=== PATIENT | female | born 1975 | race Two or more races ===

== ENCOUNTER 2016-07-21 11:06 | Emergency (ER) | payer OTHER, MEDICAID ==
[2016-07-21] MEDS ORDERED: KETOROLAC 30 MG/ML 1 ML VIAL IVP STA (11:32)
[2016-07-21] MEDS ORDERED: SODIUM CHLORIDE 0.9% 500 ML IV STA (11:32)
[2016-07-21] MEDS ORDERED: SODIUM CHLORIDE 0.9% 1,000 ML IV STA (11:32)
[2016-07-21] MEDS ORDERED: METOCLOPRAMIDE 5 MG/ML 2 ML VIAL IVP STA (11:32)
[2016-07-21] MEDS ORDERED: DEXAMETHASONE SOD PHOSPHATE 10 MG/ML 1 ML VIAL IV STA (11:34)
[2016-07-21] MEDS ORDERED: MAGNESIUM SULFATE-D5W PMX 1 GM in DEXTROSE/WATER 1 100ML.BAG IVPB ONE (11:35)
[2016-07-21 12:11] LABS: Basophils % (A) 1 %; CH 32.8; CHCM 35.1; Eosinophils # (A) 0.2 k/uL (0-0.7); Eosinophils % (A) 4 %; HCT 42.4 % (34.0-46.0); HDW 2.67; HGB 14.9 gm/dL (11.4-16.0); Luc # (Auto) 0.08; Luc % (Auto) 1; Lymphocytes # (A) 1.5 k/uL (1.0-4.8); Lymphocytes % (A) 26 %; MCH 32.9 pg (25.0-35.0); MCHC 35.1 g/dL (31.0-37.0); MCV 93.9 fL (80.0-100.0); Mean Platelet Volume 6.4; Monocytes # (A) 0.3 k/uL (0-1.0); Monocytes % (A) 6 %; Neutrophils # (A) 3.7 k/uL (1.3-7.7); Neutrophils % (A) 63 %; RBC 4.51 m/uL (3.80-5.40); RDW 12.4 % (11.5-15.5); WBC 5.9 k/uL (3.8-10.6); WBC (Perox) 5.97
--- NOTE | 2016-07-21 12:26 | CT ---
EXAMINATION TYPE: CT brain wo con DATE OF EXAM: 07/21/2016 12:18 PM COMPARISON: 01/11/2012 INDICATION: Patient complains of migraine headache unresponsive to her new medication. DLP: 975 mGycm, Automated exposure control for dose reduction was used. CONTRAST: None CT of the brain is performed utilizing 3 mm thick sections through the posterior fossa and 3 mm thick sections through the remaining calvarium. Study is performed within 24 hours of arrival to the hosp [facility]. No abnormal hyperdensity is present to suggest an acute intracranial hemorrhage. No mass lesion is evident. No acute infarcts are evident. Parenchymal density has a more normal appearance on the current examin ation. Ventricles and sulci are appropriate for the patient age. Paranasal sinuses and mastoid air cells within the types-iv-kgty are clear. IMPRESSIONS: 1. No acute intracranial process.
[2016-07-21 12:33] LABS: Anion Gap 9 mmol/L; Blood Urea Nitrogen 12 mg/dL (7-17); Calcium 8.6 mg/dL (8.4-10.2); Carbon Dioxide 24 mmol/L (22-30); Chloride 107 mmol/L (98-107); Glucose 93 mg/dL (74-99); Non-African American GFR(MDRD) >60 (>60 ml/min/1.73 sqM); Potassium 4.4 mmol/L (3.5-5.1); Sodium 140 mmol/L (137-145)
--- NOTE | 2016-07-21 12:48 | ED ---
Headache HPI - General Chief Complaint: Headache Stated Complaint: POSS ALLERGIC REACTION TO NEW MED Time Seen by Provider: 07/21/16 11:19 Mode of arrival: ambulatory Limitations: no limitations - History of Present Illness Initial Comments: This 40-year-old white female presents with a complaint of a headache. She relates that she has had headaches for the last 3 months. She apparently saw Dr. Roman approximately one week ago and was prescribed Fioricet one pill 3 times a day as needed. She relates that she took 6-7 pills yesterday. She has had somewhat limited relief. The headache was initially on the left side and now it is on the right side. She has tried some Tylenol and Zofran. She's had significant nausea. She has had some photophobia but denies any phonophobia. She is still taking her oxycodone twice a day as well as mobile back. Her temperatures ranged between 99 and 100. She denies any visual complaints otherwise or neck pain. She denies any possibility of as she's had a hysterectomy. She does relate a history of close head injury in 2008 and a follow-up computed tomography scan showed shelly "spots on the brain". She has seen a local neurologist but is currently following up with a neurologist at [facility]. She has a history of interstitial cystitis with bladder removal and subsequent stoma and stimulator placement. She has chronic pain for these issues and sees a neurologist for the bladder stimulator but has not followed up with them in regard to the headaches as of yet. No other complaints or modifying factors. - Related Data Home Medications Medication Instructions Recorded Confirmed Acetaminophen [Tylenol 8 Hour] 1,300 mg PO TID PRN 07/21/16 07/21/16 Butalb/Acetaminophen/Caffeine 1 cap PO 5XD 07/21/16 07/21/16 [Qllggp-Qdltfaws-Sbtz 50-300-40] Meloxicam [Meloxicam] 7.5 mg PO BID 07/21/16 07/21/16 Ondansetron [Zofran] 4 mg PO QID PRN 07/21/16 07/21/16 Sertraline HCl [Sertraline HCl] 100 mg PO DAILY 07/21/16 07/21/16 Zolpidem [Ambien] 10 mg PO HS PRN 07/21/16 07/21/16 oxyCODONE HCL [oxyCODONE HCL] 20 mg PO BID 07/21/16 07/21/16 Allergies Allergy/AdvReac Type Severity Reaction Status Date / Time prochlorperazine Allergy Rash/Hives Verified 07/21/16 12:08 [From Compazine] Review of Systems ROS Statement: Those systems with pertinent positive or pertinent negative responses have been documented in the HPI. ROS Other: All systems not noted in ROS Statement are negative. Past Medical History Additional Past Medical History / Comment(s): migraines History of Any Multi-Drug Resistant Organisms: MRSA Date of last positivie culture/infection: 08/03/15 MDRO Source:: GROIN Past Psychological History: No Psychological Hx Reported Smoking Status: Never smoker Past Alcohol Use History: Occasional Past Drug Use History: None Reported General Exam - General Exam Comments Initial Comments: GENERAL: The patient is well nourished and well hydrated. VITAL SIGNS: Heart rate, blood pressure, respiratory rate reviewed as recorded in nurse's notes. EYES: Pupils are round and reactive. Extraocular movements are intact. No conjunctival / lid redness or swelling. ENT: No external evidence of injury, swelling, or ecchymosis. Airway is patent. Throat is clear. NECK: Nontender. No swelling or evidence of injury. No subcutaneous emphysema. Trachea is midline. No thyroid mass. HEART: Regular rate and rhythm. Good peripheral pulses. LUNGS/CHEST: Breath sounds clear and equal bilaterally. No rales, rhonchi, or wheezes. No ecchymosis, subcutaneous emphysema, or tenderness. ABDOMEN: Abdomen soft without tenderness. No palpable masses or organomegaly. No peritoneal signs. No abdominal wall swelling or ecchymosis. Stoma is present for urine. EXTREMITIES: No extremity tenderness. Normal muscle tone and function. No thoracolumbar tenderness. NEUROLOGIC: Sensation is grossly intact. Cranial nerve exam reveals face is symmetrical, tongue is midline, speech is clear. SKIN: No abrasions or ecchymosis is noted. No induration or masses noted. PSYCHIATRIC: Alert and oriented. Appropriate behavior and judgment. Limitations: no limitations Course Vital Signs 07/21/16 07/21/16 11:12 12:50 Temperature 97.8 F 98.7 F Pulse Rate 101 H 86 Respiratory 20 16 Rate Blood Pressure 126/72 161/79 O2 Sat by Pulse 98 100 Oximetry Medical Decision Making - Medical Decision Making The patient was seen and examined. All diagnostics were reviewed. An IV is established and patient is given Decadron, Toradol, Reglan, and magnesium with IV fluids. She relates significant improvement with these medications. She had a computed tomography scan of the brain which did not show any acute processes. Her laboratory was all normal. It is felt that she likely does have chronic migraine headaches. It is also felt that she may benefit from some Imitrex. She is agreeable to trying this medication. Due to the chronicity and significance of her headaches it is felt as though she benefit from further follow-up with her neurologist. She understands and agrees. She leaves in no identifiable distress. - Lab Data Result diagrams: 07/21/16 12:00 07/21/16 12:00 Lab Results 07/21/16 07/21/16 Range/Units 12:00 12:00 WBC 5.9 (3.8-10.6) k/uL RBC 4.51 (3.80-5.40) m/uL Hgb 14.9 (11.4-16.0) gm/dL Hct 42.4 (34.0-46.0) % MCV 93.9 (80.0-100.0) fL MCH 32.9 (25.0-35.0) pg MCHC 35.1 (31.0-37.0) g/dL RDW 12.4 (11.5-15.5) % Plt Count 294 (150-450) k/uL Neutrophils % 63 % Lymphocytes % 26 % Monocytes % 6 % Eosinophils % 4 % Basophils % 1 % Neutrophils # 3.7 (1.3-7.7) k/uL Lymphocytes # 1.5 (1.0-4.8) k/uL Monocytes # 0.3 (0-1.0) k/uL Eosinophils # 0.2 (0-0.7) k/uL Basophils # 0.0 (0-0.2) k/uL Sodium 140 (137-145) mmol/L Potassium 4.4 (3.5-5.1) mmol/L Chloride 107 (98-107) mmol/L Carbon Dioxide 24 (22-30) mmol/L Anion Gap 9 mmol/L BUN 12 (7-17) mg/dL Creatinine 0.70 (0.52-1.04) mg/dL Est GFR (MDRD) Af Amer >60 (>60 ml/min/1.73 sqM) Est GFR (MDRD) Non-Af >60 (>60 ml/min/1.73 sqM) Glucose 93 (74-99) mg/dL Calcium 8.6 (8.4-10.2) mg/dL Disposition Clinical Impression: Migraine Disposition: HOME SELF-CARE Condition: Good Instructions: Migraine Headache (ED) Referrals: Mackenzie Roman DO [Primary Care Provider] - 1-2 days Time of Disposition: 13:32
[2016-07-21 12:51] VITALS: RESP 16
--- NOTE | 2016-07-21 13:34 | ED ---
Medical Decision Making - Lab Data Result diagrams: 07/21/16 12:00 07/21/16 12:00 Lab Results 07/21/16 07/21/16 Range/Units 12:00 12:00 WBC 5.9 (3.8-10.6) k/uL RBC 4.51 (3.80-5.40) m/uL Hgb 14.9 (11.4-16.0) gm/dL Hct 42.4 (34.0-46.0) % MCV 93.9 (80.0-100.0) fL MCH 32.9 (25.0-35.0) pg MCHC 35.1 (31.0-37.0) g/dL RDW 12.4 (11.5-15.5) % Plt Count 294 (150-450) k/uL Neutrophils % 63 % Lymphocytes % 26 % Monocytes % 6 % Eosinophils % 4 % Basophils % 1 % Neutrophils # 3.7 (1.3-7.7) k/uL Lymphocytes # 1.5 (1.0-4.8) k/uL Monocytes # 0.3 (0-1.0) k/uL Eosinophils # 0.2 (0-0.7) k/uL Basophils # 0.0 (0-0.2) k/uL Sodium 140 (137-145) mmol/L Potassium 4.4 (3.5-5.1) mmol/L Chloride 107 (98-107) mmol/L Carbon Dioxide 24 (22-30) mmol/L Anion Gap 9 mmol/L BUN 12 (7-17) mg/dL Creatinine 0.70 (0.52-1.04) mg/dL Est GFR (MDRD) Af Amer >60 (>60 ml/min/1.73 sqM) Est GFR (MDRD) Non-Af >60 (>60 ml/min/1.73 sqM) Glucose 93 (74-99) mg/dL Calcium 8.6 (8.4-10.2) mg/dL Disposition Clinical Impression: Migraine Disposition: HOME SELF-CARE Condition: Good Instructions: Migraine Headache (ED) Prescriptions: SUMAtriptan SUCCINATE [Imitrex] 50 mg PO ONCE PRN #10 tablet PRN Reason: Headache Referrals: Mackenzie Gonzales DO [Primary Care Provider] - 1-2 days
[2016-07-21 14:27] VITALS: BP 130/80; PULSE 70; TEMP 98.2
== END 2016-07-21 14:25 | disposition home or self-care (01) ==
LOC: EC 11:06
DX: G43.909 Migraine, unspecified, not intractable, without status migrainosus (principal); Z79.1 Long term (current) use of non-steroidal anti-inflammatories (NSAID); Z79.891 Long term (current) use of opiate analgesic; Z79.899 Other long term (current) drug therapy; Z88.8 Allergy status to other drugs, medicaments and biological substances
CPT/HCPCS: 36415; 80048; 85025; 70450; 99284; 96365; 96375 ×3; 96361 ×2; J1100; J2765; J1885; J3475

== ENCOUNTER → 2016-08-24 | Outpatient (CLI) | payer OTHER, MEDICAID ==
--- NOTE | 2016-08-24 20:07 | CT ---
EXAMINATION TYPE: CT abdomen pelvis w con DATE OF EXAM: 08/24/2016 7:26 PM COMPARISON: 02/07/2011 HISTORY: Left sided pain with bowel changes CT DLP: 651.4 mGycm Automated exposure control for dose reduction was used. TECHNIQUE: Helical acquisition of images was performed from the lung bases through the pelvis. CONTRAST: Performed with Oral Contrast and with IV Contrast, patient injected with 100 mL of Omnipaque 300. FINDINGS: Lung bases are clear. There is no pleural effusion. Heart size is normal. There are clips from cholecystectomy. Liver spleen pancreas appear normal. Bile ducts are not dilated . There is no adrenal mass. Kidneys show satisfactory contrast opacification. There is no hydronephro sis. There is no retroperitoneal adenopathy. There is a implanted device over the right mid abdomen. This is a neurostimulator. There is a stoma in the right mid abdomen. 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 There is also a loop of bowel in the stoma consistent with a parastomal hernia. This appears incarcerated but there is no sign of obstruction. Bony structures appear intact. Bladder appears absent. I see no intestinal wall thickening. There are no dilated loops. IMPRESSION: THERE IS A STOMA IN THE RIGHT LOWER MID ABDOMEN THAT APPEARS TO CONTAIN SOME OMENTAL FAT AND NONINCAR CERATED LOOP OF SMALL BOWEL. NO EVIDENCE OF A BOWEL OBSTRUCTION HOWEVER. THIS IS NEW COMPARED TO OLD CT SCAN. THIS IS ALSO NEW COMPARED TO THE MORE RECENT CT SCAN OF 03/11/2015. THERE IS NEW 2 CM VENTR AL HERNIA IN THE UPPER MID ABDOMEN THAT CONTAINS OMENTAL FAT.
== END | disposition home or self-care (01) ==
LOC: RADCTMAIN 18:47
PROVIDERS: ATTEND Family Medicine
DX: K43.9 Ventral hernia without obstruction or gangrene (principal)
CPT/HCPCS: 74177; Q9967

== ENCOUNTER → 2020-06-09 | Outpatient (CLI) | payer OTHER ==
[2020-06-10 15:17] LABS: Gliadin AB IgA, Deaminated NEGATIVE (NEGATIVE); Gliadin AB IgA, Unit 3.2 U/mL; Gliadin AB IgG, Deaminated NEGATIVE (NEGATIVE)
== END | disposition home or self-care (01) ==
LOC: LABWHC1 10:12
PROVIDERS: ATTEND Nurse Practitioner
DX: R19.4 Change in bowel habit (principal)
CPT/HCPCS: 36415; 83516

== ENCOUNTER → 2020-12-30 | Outpatient (CLI) | payer OTHER ==
--- NOTE | 2020-12-31 10:55 | MM ---
Reason for exam: clinical finding. Last mammogram was performed 5 years and 10 months ago. History: Family history of premenopausal breast cancer in mother at age 35, breast cancer in aunt, and breast cancer in maternal grandmother. Taking hormonal contraceptives for 4 years 5 months beginning at age 31. Physical Findings: Nurse did not find any significant physical abnormalities on exam. MG Diagnostic Mammo w CAD POWER Bilateral CC and MLO view(s) were taken. Prior study comparison: February 20, 2015, bilateral MG 3d diag mammo w/cad POWER. There are scattered fibroglandular densities. No significant new findings when compared with previous films. These results were verbally communicated with the patient and result sheet given to the patient on 12/30/20. ASSESSMENT: Benign, BI-RAD 2 RECOMMENDATION: Routine screening mammogram of both breasts in 1 year. Manage patient on a clinical basis.
== END | disposition home or self-care (01) ==
LOC: RADMAMWWP 14:58
PROVIDERS: ATTEND Nurse Practitioner
DX: N64.89 Other specified disorders of breast (principal); Z80.3 Family history of malignant neoplasm of breast; Z79.3 Long term (current) use of hormonal contraceptives
CPT/HCPCS: 77066